=== PATIENT | female | born 1935 | race Hispanic/Latino ===

== ENCOUNTER 2017-07-04 13:09 | Inpatient (IN) | payer SELFPAY ==
[~2017-07-04 13:09] MED LIST: ISOVUE-370 76%-LOCM 1 ML ONE
[2017-07-04 13:31] LABS: #Basophils 0.1 thou/uL (0.0-0.2); #Eosinphils 0.2 thou/uL (0.0-0.7); #Lymphocytes 2.1 thou/uL (1.20-3.40); #Monocytes 0.8 thou/uL (0.11-0.59); #Neutrophils 3.9 thou/uL (1.40-6.50); %Basophils 0.8 % (0.0-1.0); %Eosinophils 2.4 % (0.0-10.0); %Lymphocytes 29.7 % (21.0-51.0); %Monocytes 10.8 % (0.0-10.0); %Neutrophils 56.2 % (42.0-75.0); Hemoglobin 12.9 g/dL (12.0-16.0); Mean Corpuscular HGB CONC 34.6 g/dL (32.0-36.0); Mean Corpuscular Hemoglobin 32.2 pg (27.0-31.0); Mean Corpuscular Volume 92.9 fl (81.0-99.0); Mean Platelet Volume 6.2 fL (7.4-10.4); Platelet Count 258 thou/uL (130-400); RBC Distribution Width 11.4 % (11.5-14.5); Red Blood Cell (RBC) Count 4.01 mill/uL (4.20-5.40); White Blood Cell (WBC) Count 6.9 thou/uL (4.8-10.8)
[2017-07-04 13:48] LABS: ALT (SGPT) 40 U/L (8-55); AST (SGOT) 28 U/L (5-34); Albumin 3.6 g/dL (3.4-4.8); Alkaline Phosphatase 81 U/L (40-150); Anion Gap 10 mmol/L (10-20); BUN (Urea Nitrogen) 17 mg/dL (9.8-20.1); Bilirubin, Total 0.5 mg/dL (0.2-1.2); Calc. Creatinine Clearance 0 mL/min (70-130); Calcium 8.2 mg/dL (7.8-10.44); Carbon Dioxide 26 mmol/L (23-31); Chloride 109 mmol/L (98-107); Estimated GFR-MDRD 74; Globulin 2.6 g/dL (2.4-3.5); Glucose 143 mg/dL (83-110); Potassium 3.5 mmol/L (3.5-5.1); Protein, Total 6.2 g/dL (6.0-8.3); Sodium 141 mmol/L (136-145)
--- NOTE | 2017-07-04 14:06 | RAD ---
CHEST 1 VIEW: HISTORY: Altered mental status. Syncope. FINDINGS: Atherosclerosis of the aorta. Normal cardiac silhouette. The lungs and pleural spaces are clear. N o consolidation or mass. Chronic changes are suspected. No pneumothorax or osseous abnormalities. IMPRESSION: 1. Hyperinflation. 2. Chronic changes. 3. Atherosclerosis. POS: [facility]
--- NOTE | 2017-07-04 14:55 | CT ---
CT HEAD WITHOUT CONTRAST: HISTORY: Syncope. Headache. Collapse. COMPARISON: None. TECHNIQUE: Noncontrast head CT is performed from skull base to the skull vertex. FINDINGS: Age-appropriate atrophy. Cortical orozco-white matter differentiation is preserved. Ventricles and de la o lci are patent and symmetric. Chronic small-vessel ischemic changes of the white matter are identifi ed. A small focus of malacia or slightly prominent sulcus is noted along the right occipital lobe. No midline shift. Basilar cisterns are patent. No parenchymal hemorrhage or extraaxial hematoma. Adequate aeration of the sinuses and mastoid air cells. Calvarium is intact. IMPRESSION: 1. No acute intracranial process. 2. Chronic small-vessel ischemic change of the white matter. POS: [facility]
[2017-07-04 15:08] LABS: Bilirubin Negative (Negative); Blood, Urine Small (Negative); Clarity CLEAR (Clear); Glucose, Urine (Dipstick) Negative (Negative); Leukocyte Negative (Negative); Nitrite Negative (Negative); Protein, Urine (Dipstick) Negative (Neg-Trace); Specific Gravity, Urine 1.007 (1.002-1.036); Urobilinogen 0.2 mg/dL (0.2-1.0)
[2017-07-04 15:11] LABS: Bacteria/HPF None Seen HPF (None Seen); Hyaline Casts/LPF 0-3 HYALINE CAST LPF (0-3 Hyaline); Pathc Cast-AUWi Flag 0.14 (0-2.49); Squamous Epithelial None Seen HPF (0-3); WBC/HPF None Seen HPF (0-3)
[2017-07-04] MEDS ORDERED: Acetaminophen 325 MG TAB PO PRN (16:17)
[2017-07-04] MEDS ORDERED: Milk Of Magnesia 30 ML UDCUP PO PRN (16:17)
[2017-07-04 16:30] LABS: Troponin I Less than 0.010 ng/mL (< 0.028)
--- NOTE | 2017-07-04 16:43 | CT ---
CTA CHEST WITH 3D VOLUME RENDERING: INDICATIONS: Syncope. Hypotension. Unresponsiveness. FINDINGS: No obvious focal filling defect to indicate acute pulmonary embolus. The thoracic aorta reveals scat tered vascular disease without evidence of aneurysmal dilatation. There is a focal hypodensity at the imaged right neck, paratracheal in location, which may relate to a hypodense thyroid nodule. This is incompletely visualized and not reliably evaluated on the basis of this exam. There are interstitial densities of each lung, predominantly subpleural and dependent in location, th at may represent volume loss versus mild fibrosis. Lobular hypoattenuation of the anterior aspect of the medial segment, left hepatic lobe, is present, demonstrating Hounsfield units of 6. IMPRESSION: 1. No acute pulmonary embolus. 2. Incompletely assessed hypodensity of the right neck, which may relate to a thyroid lesion, althou gh it is not definitive. Recommend followup with thyroid ultrasound on a nonemergent basis for [facility] characterization. POS: [facility]
[2017-07-04 18:14] VITALS: BMI 23.8
--- NOTE | 2017-07-04 18:35 | PDOC.EVN ---
Event Note - Event Note Event Note: 81 F w h/o HTN hypothyroidism, HLD p/w syncope and collapse. SBP was 60s in the [place] and improved w hydration. Code status discussed extensively, with discussion lasting about 18 minutes. Patient will remain FULL CODE.
--- NOTE | 2017-07-04 19:00 | HP ---
PRIMARY CARE PHYSICIAN: None. PRESENTING COMPLAINT: "I passed out." HISTORY OF PRESENT ILLNESS: Ms. Claude Chaparro is a female, [place]uran speaking only, who is 81 years old and presents to the emergency room with syncope and collapse episodes. The patient was si tting this afternoon eating lunch. She had reported being feeling ill and had a headache before. Wh ile sitting at the table, she leant forward and passed out, lasting several seconds (exact duration i s unclear). The families were there to support her and prevent her from falling to the ground. EMS was called and blood pressure taken in the field was 61/34. She was given IV fluids and blood pressu re increased to 124/42. There was no history of seizures, incontinence. No previous episodes in the past. There was no history of fevers or chills. No chest pain, shortness of breath, nausea, or vom iting. She has a history of hypertension and takes her blood pressure pills regularly. Other medica l history includes hypothyroidism and hyperlipidemia. PAST MEDICAL HISTORY: As stated above. PAST SURGICAL HISTORY: None. FAMILY HISTORY: Reviewed and noncontributory. Of note, she had also had poor p.o. intake and fluid intake for the past few days according to her da ughter. SOCIAL HISTORY: Does not drink alcohol, smoke cigarettes, or use illicit drugs. ALLERGIES: No known drug allergies. REVIEW OF SYSTEMS: 12-point review of systems conducted and negative except as stated in HPI. PHYSICAL EXAMINATION: VITAL SIGNS: On presentation at the ER, blood pressure had improved to 124/42, pulse rate 80, oxygen saturation 96% on room air, respiratory rate 21, temperature 98.9 degree Fahrenheit. GENERAL: Not in acute distress, lying comfortably in bed. HEENT: Normocephalic, atraumatic. Nonpale, anicteric. PERRLA. EOMI. Moist mucous membranes. RESPIRATORY: Vesicular breath sounds bilaterally. No wheezes, rales, or rhonchi. CARDIOVASCULAR: S1 and S2 only. Regular rate and rhythm. No murmurs, rubs, or gallops. ABDOMEN: Soft, nontender, nondistended. Bowel sounds normoactive. No hepatosplenomegaly. Soft, no t distended. NEUROLOGIC: Alert and well oriented to time, place, and person. No focal deficits. MUSCULOSKELETAL: No edema. Full range of movement. SKIN: Warm, dry, and well perfused. No rashes or lesions. PSYCHIATRIC: Normal mood and affect. LABORATORY DATA: CBC was largely unremarkable as well as serum chemistry. Initial troponin was less than 0.010. Urinalysis was also unremarkable. IMAGING: CTA chest is negative for PE. Brain CT showed no acute pathology. Chest x-ray as well yael wed nothing acute. ASSESSMENT AND PLAN: 1. Hypotension, likely medication induced. Her blood pressure was markedly low in the field, but im proved with hydration. We will hold blood pressure medications and place her on parenteral hydration with normal saline. We will check orthostasis in the morning (orthostasis was positive in the field ). 2. Hypertension: The patient came in hypotensive, so her blood pressure medications will be held. 3. Hypothyroidism: We will obtain a TSH and resume home medications once confirmed. 4. Hyperlipidemia: We will resume her atorvastatin. 5. Deep venous thrombosis prophylaxis, subcutaneous heparin. CODE STATUS: FULL CODE.
[2017-07-04] MEDS: Sodium Chloride 0.9% 1,000 ML IV SCH (19:22)
[2017-07-04] MEDS: Heparin 5,000 UNITS/ML VIAL SC SCH (19:26)
[2017-07-04] MEDS: Docusate 100 MG CAP PO SCH (19:28)
[2017-07-05 04:14] LABS: #Basophils 0.1 thou/uL (0.0-0.2); #Eosinphils 0.2 thou/uL (0.0-0.7); #Lymphocytes 2.3 thou/uL (1.20-3.40); #Monocytes 0.6 thou/uL (0.11-0.59); #Neutrophils 3.2 thou/uL (1.40-6.50); %Basophils 1.1 % (0.0-1.0); %Eosinophils 3.6 % (0.0-10.0); %Lymphocytes 35.8 % (21.0-51.0); %Monocytes 8.8 % (0.0-10.0); %Neutrophils 50.7 % (42.0-75.0); Hemoglobin 11.4 g/dL (12.0-16.0); Mean Corpuscular HGB CONC 34.9 g/dL (32.0-36.0); Mean Corpuscular Hemoglobin 32.7 pg (27.0-31.0); Mean Corpuscular Volume 93.5 fl (81.0-99.0); Mean Platelet Volume 6.6 fL (7.4-10.4); Platelet Count 220 thou/uL (130-400); RBC Distribution Width 11.3 % (11.5-14.5); Red Blood Cell (RBC) Count 3.48 mill/uL (4.20-5.40); White Blood Cell (WBC) Count 6.3 thou/uL (4.8-10.8)
[2017-07-05 04:32] LABS: Anion Gap 8 mmol/L (10-20); BUN (Urea Nitrogen) 16 mg/dL (9.8-20.1); Calc. Creatinine Clearance 66 mL/min (70-130); Calcium 7.9 mg/dL (7.8-10.44); Carbon Dioxide 22 mmol/L (23-31); Chloride 115 mmol/L (98-107); Estimated GFR-MDRD Greater than 90; Glucose 97 mg/dL (83-110); Potassium 3.4 mmol/L (3.5-5.1); Sodium 142 mmol/L (136-145)
[2017-07-05] MEDS: Sodium Chloride 0.9% 1,000 ML IV SCH ×2 (08:29→15:30)
[2017-07-05] MEDS: Atorvastatin Calcium 10 MG TAB PO SCH (08:30)
[2017-07-05] MEDS: Potassium Chloride 20 MEQ TAB PO SCH (08:30)
[2017-07-05] MEDS: Docusate 100 MG CAP PO SCH ×2 (08:30→19:51)
[2017-07-05] MEDS: Heparin 5,000 UNITS/ML VIAL SC SCH ×3 (08:30→19:52)
[2017-07-05] MEDS ORDERED: Levothyroxine Sodium 100 MCG TAB PO SCH (09:00)
[2017-07-05] MEDS ORDERED: Sodium Chloride 0.9% 500 ML IV SCH (10:45)
--- NOTE | 2017-07-05 12:39 | PDOC.PN ---
- Subjective Encounter Start Date: 07/05/17 Encounter Start Time: 12:53 Patient seen and examined today following admission for syncope w collapse likely 2/2 hypotension. Feels better but still complains of dizziness, though improved today. - Objective Resuscitation Status: Resuscitation Status FULL:Full Resuscitation MAR Reviewed: Yes Vital Signs & Weight: Vital Signs (12 hours) Temp Pulse Resp BP BP BP BP 07/05/17 10:14 84 175/74 H 192/73 H 168/72 H 07/05/17 08:00 98.4 F 76 16 07/05/17 07:55 98.4 F 76 16 179/75 H 07/05/17 03:58 98.7 F 78 18 130/63 Pulse Ox 07/05/17 10:14 07/05/17 08:00 07/05/17 07:55 95 07/05/17 03:58 96 Weight Weight 117 lb 12.8 oz I&O: 07/04/17 07/05/17 07/06/17 06:59 06:59 06:59 Intake Total 1102 Output Total 250 Balance 852 Result Diagrams: 07/05/17 03:58 07/05/17 03:58 Phys Exam - Physical Examination Constitutional: NAD HEENT: PERRLA, moist MMs, sclera anicteric Neck: no JVD, supple, full ROM Respiratory: no wheezing, no rales, no rhonchi, clear to auscultation bilateral Cardiovascular: RRR, no significant murmur, no rub Gastrointestinal: soft, non-tender, no distention, positive bowel sounds Musculoskeletal: no edema, pulses present Neurological: non-focal, moves all 4 limbs Psychiatric: normal affect, A&O x 3 Skin: no rash, normal turgor Dx/Plan (1) Hypotension Status: Acute Qualifiers: Hypotension type: unspecified hypotension type Qualified Code(s): I95.9 - Hypotension, unspecified Comment: Medication induced vs orthostatic hypotension. Improved but still c/o some dizziness. (2) HTN (hypertension) Code(s): I10 - ESSENTIAL (PRIMARY) HYPERTENSION Status: Chronic Qualifiers: Hypertension type: essential hypertension Qualified Code(s): I10 - Essential (primary) hypertension Comment: Blood pressure rising. Will restart low dose Enalaprit and monitor. (3) HLD (hyperlipidemia) Code(s): E78.5 - HYPERLIPIDEMIA, UNSPECIFIED Status: Chronic Qualifiers: Hyperlipidemia type: unspecified Qualified Code(s): E78.5 - Hyperlipidemia , unspecified Comment: Continue statins. (4) Hypothyroidism Code(s): E03.9 - HYPOTHYROIDISM, UNSPECIFIED Status: Chronic Qualifiers: Hypothyroidism type: unspecified Qualified Code(s): E03.9 - Hypothyroidism , unspecified Comment: Continue levothyroxine. Obtain TSH and Free T4. (5) Syncope and collapse Code(s): R55 - SYNCOPE AND COLLAPSE Status: Acute Comment: likely 2/2 hypotension. SBP in the 60s in the field and improved with hydration. - Plan cont current plan of care, plan discussed w/ family, out of bed/ambulate, DVT proph w/heparin Check orthostasis. Might require a gentle bolus. Restart home medications. Review of Systems - Review of Systems Neurological: Other (dizziness) - Medications/Allergies Allergies/Adverse Reactions: Allergies Allergy/AdvReac Type Severity Reaction Status Date / Time No Known Allergies Allergy Unverified 07/04/17 18:06 Medications: Current Medications Acetaminophen (Tylenol) 650 mg PO Q4H PRN PRN Reason: Headache/Fever or Pain Aspirin (Aspirin Chewable) 81 mg PO DAILY [facility] Last Admin: 07/05/17 08:30 Dose: 81 mg Atorvastatin Calcium (Lipitor) 10 mg PO DAILY [facility] Last Admin: 07/05/17 08:30 Dose: 10 mg Docusate Sodium (Colace) 100 mg PO BID [facility] Last Admin: 07/05/17 08:30 Dose: 100 mg Enalapril Maleate (Vasotec) 10 mg PO BID [facility] Heparin Sodium (Porcine) (Heparin) 5,000 units SC TID [facility] Last Admin: 07/05/17 08:30 Dose: 5,000 units Sodium Chloride (Normal Saline 0.9%) 1,000 mls @ 75 mls/hr IV .[id number] [facility] Last Admin: 07/05/17 08:29 Dose: 1,000 mls Levothyroxine Sodium (Synthroid) 150 mcg PO 0600 [facility] Magnesium Hydroxide (Milk Of Magnesium) 30 ml PO DAILYPRN PRN PRN Reason: Constipation Potassium Chloride (K-Dur) 40 meq PO QAM-WM [facility] Last Admin: 07/05/17 08:30 Dose: 40 meq Sodium Chloride (Flush - Normal Saline) 10 ml IVF Q12HR [facility] Last Admin: 07/05/17 08:30 Dose: 10 ml Sodium Chloride (Flush - Normal Saline) 10 ml IVF PRN PRN PRN Reason: Saline Flush
[2017-07-06] MEDS: Levothyroxine 150 MCG TAB PO SCH (04:09)
[2017-07-06] MEDS: Sodium Chloride 0.9% 1,000 ML IV SCH (04:11)
[2017-07-06 04:36] LABS: #Basophils 0.1 thou/uL (0.0-0.2); #Eosinphils 0.3 thou/uL (0.0-0.7); #Lymphocytes 2.2 thou/uL (1.20-3.40); #Monocytes 0.6 thou/uL (0.11-0.59); #Neutrophils 3.6 thou/uL (1.40-6.50); %Basophils 0.8 % (0.0-1.0); %Eosinophils 4.4 % (0.0-10.0); %Lymphocytes 32.5 % (21.0-51.0); %Monocytes 8.9 % (0.0-10.0); %Neutrophils 53.4 % (42.0-75.0); Hemoglobin 11.8 g/dL (12.0-16.0); Mean Corpuscular HGB CONC 34.1 g/dL (32.0-36.0); Mean Corpuscular Hemoglobin 31.7 pg (27.0-31.0); Mean Corpuscular Volume 92.7 fl (81.0-99.0); Mean Platelet Volume 6.6 fL (7.4-10.4); Platelet Count 240 thou/uL (130-400); RBC Distribution Width 11.5 % (11.5-14.5); Red Blood Cell (RBC) Count 3.71 mill/uL (4.20-5.40); White Blood Cell (WBC) Count 6.8 thou/uL (4.8-10.8)
[2017-07-06 04:57] LABS: Anion Gap 9 mmol/L (10-20); BUN (Urea Nitrogen) 10 mg/dL (9.8-20.1); Calc. Creatinine Clearance 70 mL/min (70-130); Carbon Dioxide 23 mmol/L (23-31); Chloride 114 mmol/L (98-107); Estimated GFR-MDRD Greater than 90; Glucose 93 mg/dL (83-110); Potassium 3.6 mmol/L (3.5-5.1); Sodium 142 mmol/L (136-145)
[2017-07-06] MEDS: Heparin 5,000 UNITS/ML VIAL SC SCH ×3 (08:40→20:27)
[2017-07-06] MEDS: Potassium Chloride 20 MEQ TAB PO SCH (08:41)
[2017-07-06] MEDS: Atorvastatin Calcium 10 MG TAB PO SCH (08:41)
[2017-07-06] MEDS: Docusate 100 MG CAP PO SCH ×2 (08:41→20:25)
--- NOTE | 2017-07-06 13:11 | PDOC.PN ---
- Subjective Encounter Start Date: 07/06/17 Encounter Start Time: 13:11 Patient seen and examined followinig syncope and fall. Still has dizziness, which she reports usually happens to her early in the morning and is chronic. No acute events overnight. - Objective Resuscitation Status: Resuscitation Status FULL:Full Resuscitation MAR Reviewed: Yes Vital Signs & Weight: Vital Signs (12 hours) Temp Pulse Resp BP BP Pulse Ox 07/06/17 08:00 98.5 F 76 16 07/06/17 07:15 97.3 F L 76 20 174/75 H 94 L 07/06/17 04:06 97.9 F 70 12 149/68 H 93 L Weight Weight 117 lb 12.8 oz I&O: 07/05/17 07/06/17 07/07/17 06:59 06:59 06:59 Intake Total 1102 3724 Output Total 250 Balance 852 3724 Result Diagrams: 07/06/17 04:00 07/06/17 04:00 Phys Exam - Physical Examination Constitutional: NAD HEENT: PERRLA, moist MMs, sclera anicteric Neck: supple, full ROM Respiratory: no wheezing, no rales, no rhonchi, clear to auscultation bilateral Cardiovascular: RRR, no significant murmur, no rub Gastrointestinal: soft, non-tender, no distention, positive bowel sounds Musculoskeletal: no edema, pulses present Neurological: non-focal, moves all 4 limbs Psychiatric: normal affect, A&O x 3 Skin: no rash, normal turgor Dx/Plan (1) HTN (hypertension) Code(s): I10 - ESSENTIAL (PRIMARY) HYPERTENSION Status: Chronic Qualifiers: Hypertension type: essential hypertension Qualified Code(s): I10 - Essential (primary) hypertension Comment: Fairly well controlled. Monitor closely. (2) HLD (hyperlipidemia) Code(s): E78.5 - HYPERLIPIDEMIA, UNSPECIFIED Status: Chronic Qualifiers: Hyperlipidemia type: unspecified Qualified Code(s): E78.5 - Hyperlipidemia , unspecified Comment: Continue statins. (3) Hypothyroidism Code(s): E03.9 - HYPOTHYROIDISM, UNSPECIFIED Status: Chronic Qualifiers: Hypothyroidism type: unspecified Qualified Code(s): E03.9 - Hypothyroidism , unspecified Comment: Continue levothyroxine. Free T4 WNL. (4) Syncope and collapse Code(s): R55 - SYNCOPE AND COLLAPSE Status: Resolved Comment: likely 2/2 hypotension. SBP in the 60s in the field and improved with hydration. (5) Hypotension Status: Resolved Qualifiers: Hypotension type: unspecified hypotension type Qualified Code(s): I95.9 - Hypotension, unspecified Comment: Medication induced vs orthostatic hypotension. Improved but still c/o some dizziness. - Plan cont current plan of care, plan discussed w/ family, DVT proph w/heparin TTE Walking program consult. Repeat Orthostatics,. Likely discharge tomorrow. Review of Systems - Medications/Allergies Allergies/Adverse Reactions: Allergies Allergy/AdvReac Type Severity Reaction Status Date / Time No Known Allergies Allergy Unverified 07/04/17 18:06 Medications: Current Medications Acetaminophen (Tylenol) 650 mg PO Q4H PRN PRN Reason: Headache/Fever or Pain Aspirin (Aspirin Chewable) 81 mg PO DAILY [facility] Last Admin: 07/06/17 08:41 Dose: 81 mg Atorvastatin Calcium (Lipitor) 10 mg PO DAILY [facility] Last Admin: 07/06/17 08:41 Dose: 10 mg Docusate Sodium (Colace) 100 mg PO BID [facility] Last Admin: 07/06/17 08:41 Dose: 100 mg Enalapril Maleate (Vasotec) 10 mg PO BID [facility] Last Admin: 07/06/17 08:41 Dose: 10 mg Heparin Sodium (Porcine) (Heparin) 5,000 units SC TID [facility] Last Admin: 07/06/17 08:40 Dose: 5,000 units Sodium Chloride (Normal Saline 0.9%) 500 mls @ 999 mls/hr IV .Q31M [facility] Stop: 07/06/17 13:45 Levothyroxine Sodium (Synthroid) 150 mcg PO 0600 [facility] Last Admin: 07/06/17 04:09 Dose: 150 mcg Magnesium Hydroxide (Milk Of Magnesium) 30 ml PO DAILYPRN PRN PRN Reason: Constipation Potassium Chloride (K-Dur) 40 meq PO QAM-WM [facility] Last Admin: 07/06/17 08:41 Dose: 40 meq Sodium Chloride (Flush - Normal Saline) 10 ml IVF Q12HR [facility] Last Admin: 07/06/17 08:43 Dose: Not Given Sodium Chloride (Flush - Normal Saline) 10 ml IVF PRN PRN PRN Reason: Saline Flush
[2017-07-06] MEDS ORDERED: Sodium Chloride 0.9% 500 ML IV SCH (13:15)
[2017-07-07 05:38] LABS: #Basophils 0.1 thou/uL (0.0-0.2); #Eosinphils 0.4 thou/uL (0.0-0.7); #Lymphocytes 2.3 thou/uL (1.20-3.40); #Monocytes 0.8 thou/uL (0.11-0.59); #Neutrophils 4.4 thou/uL (1.40-6.50); %Basophils 0.8 % (0.0-1.0); %Eosinophils 5.1 % (0.0-10.0); %Lymphocytes 29.1 % (21.0-51.0); %Monocytes 9.6 % (0.0-10.0); %Neutrophils 55.3 % (42.0-75.0); Mean Corpuscular HGB CONC 33.8 g/dL (32.0-36.0); Mean Corpuscular Hemoglobin 31.2 pg (27.0-31.0); Mean Corpuscular Volume 92.3 fl (81.0-99.0); Mean Platelet Volume 6.6 fL (7.4-10.4); Platelet Count 238 thou/uL (130-400); RBC Distribution Width 11.4 % (11.5-14.5); Red Blood Cell (RBC) Count 3.84 mill/uL (4.20-5.40)
[2017-07-07] MEDS: Levothyroxine 150 MCG TAB PO SCH (05:42)
[2017-07-07 05:52] LABS: Anion Gap 11 mmol/L (10-20); BUN (Urea Nitrogen) 7 mg/dL (9.8-20.1); Calc. Creatinine Clearance 66 mL/min (70-130); Calcium 8.3 mg/dL (7.8-10.44); Carbon Dioxide 25 mmol/L (23-31); Chloride 109 mmol/L (98-107); Estimated GFR-MDRD Greater than 90; Glucose 94 mg/dL (83-110); Potassium 3.7 mmol/L (3.5-5.1); Sodium 141 mmol/L (136-145)
[2017-07-07 07:19] VITALS: BP 145/76; TEMP 97.8
[2017-07-07] MEDS: Atorvastatin Calcium 10 MG TAB PO SCH (09:35)
[2017-07-07] MEDS: Docusate 100 MG CAP PO SCH (09:35)
[2017-07-07] MEDS: Potassium Chloride 20 MEQ TAB PO SCH (09:35)
[2017-07-07] MEDS: Heparin 5,000 UNITS/ML VIAL SC SCH (09:36)
--- NOTE | 2017-07-07 12:33 | DIS ---
DATE OF ADMISSION: 07/04/2017 DATE OF DISCHARGE: 07/07/2017 DISCHARGE DIAGNOSES: 1. Syncope and collapse. 2. Hypotension, orthostatic. 3. Hypertension. 4. Hypothyroidism. 5. Hyperlipidemia. HISTORY OF PRESENT ILLNESS/HOSPITAL COURSE: Ms. Krysta Arce is an 81-year-old female, and Arabic speaking only, who presented to the emergency room after a syncopal episode. She was having lunch on the afternoon of presentation and had been feeling ill with a headache before and while sit ting at the table she leaned forward and passed out, lasting for several seconds. Exact duration whi ch is unclear. The family was there to support and prevent her from falling to the ground. EMS was then called and she was found to have a blood pressure of about 61/34 in the field. She was given IV fluids with increase in her blood pressure to a systolic in the 120s. There was no history of seizu re or incontinence. No previous history of similar episodes in the past. She had no fever or chills , chest pain, shortness of breath, nausea, vomiting. She has a history of hypertension and has been taking her blood pressure medications regularly. On admission, she was started on IV fluids with com plete resolution of hypotension. She was given IV fluids and with resolution of her hypotension. In itially, she was dizzy, but after she walked around, dizziness, resolved now. She was able to ambula te freely. She also had a ANAHI and ANAHI showed ejection fraction of 50-60% with structurally normal va lves. Her blood pressure medications were restarted and she was discharged without incident. DISCHARGE MEDICATIONS: Potassium chloride 20 and with recurrent daily, aspirin 81 mg daily, atorvast atin 10 mg daily, levothyroxine sodium 150 mcg daily, enalapril 50 mg twice a day, furosemide 20 mg d aily. PHYSICAL EXAMINATION: She was examined on the day of discharge. VITAL SIGNS: Blood pressure 145/76, temperature 97.8 degree Fahrenheit, pulse rate 73, respiratory r ate 16, oxygen saturation 96% on room air. GENERAL: Not in acute distress, lying comfortably in bed. HEENT: PERRLA. Moist mucous membranes. Sclerae are anicteric. NECK: Supple, with full range of movement. RESPIRATORY: Vesicular breath sounds with no wheezes, rales or rhonchi. CARDIOVASCULAR: S1 and S2 which is regular rate and rhythm. No murmurs, rubs or gallops. ABDOMEN: Soft, nontender, nondistended, positive bowel sounds. EXTREMITIES: No edema. NEUROLOGIC: Alert and oriented to time, place and person. No focal deficits. PSYCHIATRIC: Normal mood and affect. SKIN: Warm, dry, well perfused. No rashes or lesions. LABORATORY DATA: WBC 8, hemoglobin 12, platelet count 238. Sodium 141, potassium 3.7, chloride 109, carbon dioxide 25, anion gap 11, BUN 7, creatinine 0.57, glucose 94, calcium 8.3. IMAGING: CTA chest showed no acute pulmonary embolus, incompletely assessed hypodensity in the right neck which may relate to a thyroid lesion, otherwise not definitive. Recommend follow up with thyro id ultrasound on a nonemergent basis for further characterization. Chest x-ray: Hyperinflation, chronic changes, atherosclerosis. CT brain without contrast, no acute intracranial carotid process, chronic small vessel ischemic change of the white matter. PROCEDURES: None. DIET: Heart healthy. CARE GOALS: To follow up with primary care physician within 1 week of discharge. She will need to h ave further thyroid studies as listed above on an outpatient basis. ACTIVITY: Resume as tolerated. Discharge time 65 minutes including chart review and documentation.
--- NOTE | 2017-07-08 14:24 | EKG ---
Test Reason : AMS Blood Pressure : / mmHG Vent. Rate : 077 BPM Atrial Rate : 077 BPM P-R Int : 154 ms QRS Dur : 082 ms QT Int : 400 ms P-R-T Axes : 062 -08 043 degrees QTc Int : 452 ms Normal sinus rhythm Normal ECG Confirmed by FITO CANO, BRIE ([id number]), senior technical editor AYESHA HINSON ([id number] on 07/08/2017 2:24:05 PM Referred By: Confirmed By:BRIE PAYTON MD
== END 2017-07-07 09:55 | disposition home or self-care (01) | DRG 312 ==
LOC: ERS 13:09 → 2SW 16:16 → OBSVTOIN 16:16 → T4-B 07-06 15:16
PROVIDERS: ADMIT Internal Medicine; ATTEND Internal Medicine
DX: I95.1 Orthostatic hypotension (principal); E86.0 Dehydration; E03.9 Hypothyroidism, unspecified; E78.5 Hyperlipidemia, unspecified; I10 Essential (primary) hypertension; Z79.82 Long term (current) use of aspirin
CPT/HCPCS: 36415; 70450; 71045; 71275; 80048; 80053; 81003; 81015; 83605; 84439; 84443; 84484; 85025; 87040; 93005; 93306; 96360; 96361; A4216; J1644